=== PATIENT | female | born 1980 | race Caucasian/White ===

== ENCOUNTER → 2021-06-15 | Outpatient (CLI) | payer OTHER | LOC: KOH-I 11:52 | DX: J40 Bronchitis, not specified as acute or chronic (principal); R05.9 Cough, unspecified; R91.8 Other nonspecific abnormal finding of lung field | CPT/HCPCS: 71046 ==

== ENCOUNTER 2021-09-08 07:49 | Inpatient (IN) | payer OTHER ==
[~2021-09-08] VITALS: Ht 165.1 cm; Wt 184.6 kg
[2021-09-08 08:46] LABS: HEMOGLOBIN 13.4 gm/dl (12.3-15.3); RED BLOOD COUNT 4.81 M/UL (4.00-5.10); WHITE BLOOD COUNT 9.7 K/UL (4.5-11.0)
[2021-09-08 09:17] LABS: BUN/CREATININE RATIO 16 (0-10)
[2021-09-08] MEDS ORDERED: HYDROCHLOROTHIA25 MG PO (11:56)
[2021-09-08] MEDS ORDERED: LEVOCETIRIZINE D5 MG PO (11:56)
[2021-09-08] MEDS ORDERED: CRYSELLE-28 TA1 EACH PO (11:57)
[2021-09-08] MEDS ORDERED: LEVOTHYROXINE112 MCG PO (11:57)
[2021-09-08] MEDS ORDERED: PROTONIX40 MG PO (11:58)
[2021-09-08] MEDS ORDERED: HYDROXYZINE HCL10 MG PO (11:58)
[2021-09-08] MEDS ORDERED: ECOTRIN81 MG PO (11:59)
[2021-09-08] MEDS ORDERED: IBU800 MG PO (11:59)
[2021-09-09 07:17] LABS: HEMOGLOBIN 13.6 gm/dl (12.3-15.3); WHITE BLOOD COUNT 11.5 K/UL (4.5-11.0)
[2021-09-09 07:36] LABS: BUN/CREATININE RATIO 17 (0-10)
[2021-09-09] MEDS ORDERED: LOPRESSOR 50 MG50 MG PO (10:57)
[2021-09-09] MEDS ORDERED: ELIQUIS5 M1 PO (10:57)
[2021-09-10 11:12] LABS: PROTEIN C-FUNCTIONAL 148 % (73-180); PROTEIN S-FUNCTIONAL 100 % (63-140)
== END 2021-09-09 11:59 | disposition home or self-care (01) | DRG 308 ==
LOC: ER1 07:49 → CDU 11:31 → CCU 14:00
PROVIDERS: Family Medicine; Physician Assistant; ADMIT Internal Medicine
PROC: B24BZZZ Ultrasonography of Heart with Aorta (ICD-10-PCS; principal; 2021-09-08)
DX: I48.91 Unspecified atrial fibrillation (principal); I26.94 Multiple subsegmental thrombotic pulmonary emboli without acute cor pulmonale; Z20.822 Contact with and (suspected) exposure to COVID-19; Z68.44 Body mass index [BMI] 60.0-69.9, adult; I16.9 Hypertensive crisis, unspecified; I16.0 Hypertensive urgency; E66.01 Morbid (severe) obesity due to excess calories; K21.9 Gastro-esophageal reflux disease without esophagitis; G47.33 Obstructive sleep apnea (adult) (pediatric); E03.9 Hypothyroidism, unspecified; I07.1 Rheumatic tricuspid insufficiency; I10 Essential (primary) hypertension; Z79.01 Long term (current) use of anticoagulants; Z79.82 Long term (current) use of aspirin; Z90.49 Acquired absence of other specified parts of digestive tract; Z80.9 Family history of malignant neoplasm, unspecified; Z88.1 Allergy status to other antibiotic agents; Z82.49 Family history of ischemic heart disease and other diseases of the circulatory system; Z83.3 Family history of diabetes mellitus; Z84.89 Family history of other specified conditions
CPT/HCPCS: ECHO; 0240U; 36415; 51702; 71045; 80053; 82550; 82553; 83735; 83880; 84484; 85025; 85379; 85610; 85652; 85730; 86140; 93005; 93306; 93970; 96374; 96375; 99285; J0360; J1644; Q9957; Q9967

== ENCOUNTER 2021-09-27 10:44 | Observation (INO) | payer OTHER ==
[~2021-09-27] VITALS: Ht 167.6 cm; Wt 184.6 kg
[~2021-09-27 10:44] MED LIST: CRYSELLE-28 TA1 EACH PO; ECOTRIN81 MG PO; ELIQUIS5 M1 PO; HYDROCHLOROTHIA25 MG PO; HYDROXYZINE HCL10 MG PO; IBU800 MG PO; LEVOCETIRIZINE D5 MG PO; LEVOTHYROXINE112 MCG PO; LOPRESSOR 50 MG50 MG PO; PROTONIX40 MG PO
[2021-09-27 11:33] LABS: HEMOGLOBIN 14.7 gm/dl (12.3-15.3); RED BLOOD COUNT 5.26 M/UL (4.00-5.10); WHITE BLOOD COUNT 12.7 K/UL (4.5-11.0)
[2021-09-27 12:21] LABS: BUN/CREATININE RATIO 20 (0-10)
[2021-09-27] MEDS ORDERED: ELIQUIS5 MG PO (14:08)
[2021-09-27] MEDS ORDERED: TYLENOL 8 HOUR650 MG PO (14:10)
[2021-09-28 01:32] LABS: WHITE BLOOD COUNT 11.8 K/UL (4.5-11.0)
[2021-09-28 01:36] LABS: RED BLOOD COUNT 4.57 M/UL (4.00-5.10)
[2021-09-28 02:28] LABS: BUN/CREATININE RATIO 20 (0-10)
[2021-09-28] MEDS ORDERED: CEFUROXIME250 MG PO (11:55)
== END 2021-09-28 12:55 | disposition home or self-care (01) ==
LOC: ER1 10:44 → PROG CARE 13:16 → CDU 13:16 → PROG CARE 13:16
PROVIDERS: Emergency Medicine; Physician Assistant; ADMIT Internal Medicine
DX: I48.0 Paroxysmal atrial fibrillation (principal); N30.00 Acute cystitis without hematuria; E87.6 Hypokalemia; I16.0 Hypertensive urgency; E03.9 Hypothyroidism, unspecified; K21.9 Gastro-esophageal reflux disease without esophagitis; I10 Essential (primary) hypertension; E66.01 Morbid (severe) obesity due to excess calories; Z68.44 Body mass index [BMI] 60.0-69.9, adult; Z20.822 Contact with and (suspected) exposure to COVID-19; Z86.711 Personal history of pulmonary embolism; Z79.01 Long term (current) use of anticoagulants; Z79.82 Long term (current) use of aspirin; Z79.890 Hormone replacement therapy; Z79.899 Other long term (current) drug therapy; Z88.0 Allergy status to penicillin; Z88.1 Allergy status to other antibiotic agents; Z90.49 Acquired absence of other specified parts of digestive tract
CPT/HCPCS: 71045; 80048; 80307; 81001; 82550; 82553; 83605; 83735; 84439; 84443; 84484; 84703; 85025; 85610; 85730; 93005; 96374; 96375; 96376; 99285; G0378; J0696; J7030; U0002